=== PATIENT | female | born 1990 | race Caucasian/White ===

== ENCOUNTER 2017-04-14 01:01 | Emergency (ER) | payer BC ==
--- NOTE | ~2017-04-14 | CT71 ---
[facility] A Service of [facility] RADIOLOGY TEXT RESULTS PATIENT: ZOE LUONG LOCATION: [facility] : 88 UNIT #: [id number] AGE: [address]: Gary Fields SEX: F ORDER DR: [id number] [facility]. [place], [place] [address] [id number] MR#: [id number] Acc #: [id number] NAME: ZOE LUONG : 1990 SEX: F STUDY DATE/TIME: 04/14/2017 2:48 UNIT: ISI ROOM: STUDY DESCRIPTION: CT Head Wo Contrast Attending Physician: Gary Fields P.A.-C. Ordering Physician: Gary Cline M.D. Primary Care Physician: Primary Care Physician No MEDICAL IMAGING REPORT This report is preliminary unless electronic signature is present EXAM CT head, noncontrast, 04/14/2017 HISTORY 27-year-old female in the ED after a seizure today prior to arrival. No known prior history of seizures. Postictal lethargy and headache. TECHNIQUE CT examination of the head performed without IV contrast. Some of the images are degraded by patient motion artifact, and portions of the examination were repeated. This CT exam was performed with one or more of the following radiation dose reduction techniques: automatic control, adjustment of mA and/or kV according to patient size, and iterative reconstruction. FINDINGS The examination is negative. No evidence of intracranial hemorrhage, mass, mass effect, cerebral edema, hydrocephalus or additional abnormality. IMPRESSION Negative head CT examination. Dictated by... Gigi Coburn M.D. THIS IS AN ELECTRONICALLY VERIFIED REPORT Gigi Coburn M.D. at 04/14/2017 5:27 AM RGW/rnr TD: 04/14/2017 04:42 JOB #: [id number] MEDICAL IMAGING REPORT [facility] A Service [facility] RADIOLOGY TEXT RESULTS PATIENT: ZOE LUONG LOCATION: [facility] : 88 UNIT #: [id number] AGE: [address]: Gary Fields SEX: F ORDER DR: Page 1 of 1 COPY
--- NOTE | ~2017-04-14 | EKG ---
PATIENT: ZOE LUONG UNIT #: [id number] Ventricular Rate: 89 BPM Atrial Rate: 89 BPM P-R Interval: 164 ms QRS Duration: 104 ms Q-T Interval: 366 ms QTC Calculation(Bezet): 445 ms P [place]: 50 degrees Calculated R [place]: 38 degrees Calculated T [place]: 61 degrees Diagnosis Line: Normal sinus rhythm Diagnosis Line: Normal ECG Diagnosis Line: No previous ECGs available Diagnosis Line: Confirmed by RSOA CHERY MD ([id number]) on 04/16/2017 Diagnosis Line: 10:46:14 PM INTERPRETING MD: MIRI TORRES
[2017-04-14 02:48] LABS: BASOPHIL% 0.8 % (0-2.5); EOSINOPHIL% 0.1 % (0.0-7.0); HEMATOCRIT 35.8 % (35.0-45.0); HEMOGLOBIN 11.9 gm/dL (12.0-16.0); LYMPHOCYTE# 0.9 X10e3 (1.0-3.5); LYMPHOCYTE% 23.8 % (17.0-45.0); MEAN CELL VOLUME 79.6 FL (83-96); MEAN CORPUSCULAR HEMOGLOBIN 26.4 PG (28-34); MEAN CORPUSCULAR HGB CONC 33.1 g/dL (30-36); MEAN PLATELET VOLUME 8.5 FL (6.5-11.5); MONOCYTE# 0.2 X10e3 (0-1.0); MONOCYTE% 5.5 % (3.0-12.0); NEUTROPHIL# 2.8 X10e3 (1.5-7.1); NEUTROPHIL% 69.8 % (40-75); PLATELET COUNT 234 X10e3 (140-420); RED CELL DISTRIBUTION WIDTH 15.2 % (11.0-15.5)
[2017-04-14 03:01] LABS: DIFF IND NO
[2017-04-14 03:09] LABS: ALBUMIN SERUM 3.7 g/dL (3.5-5.0); ALKALINE PHOSPHATASE 76 U/L (32-92); ALT (SGPT) 80 U/L (10-40); AST (SGOT) 24 U/L (10-42); BILIRUBIN,TOTAL 0.3 mg/dL (0.2-2.0); BLOOD UREA NITROGEN 9 mg/dL (9-23); BUN/CREATININE RATIO 11.25; CALCIUM SERUM 8.7 mg/dL (8.4-10.2); CARBON DIOXIDE 24 mmol/L (22-31); CHLORIDE 107 mmol/L (100-111); CREATININE SERUM 0.8 mg/dL (0.6-1.4); GLOM FILT RATE Estimated 100.4 mL/min (>60); GLUCOSE FASTING 113 mg/dL (70-110); POTASSIUM 3.2 mmol/L (3.5-5.1); PROTEIN TOTAL SERUM 6.8 g/dL (6.0-8.3); SODIUM 138 mmol/L (135-145)
[2017-04-14 03:11] LABS: ALCOHOL BLOOD <5 mg/dL (0); BILIRUBIN, DIRECT <0.1 mg/dL (0.0-0.2); BILIRUBIN,INDIRECT 0.2 mg/dL (0.0-0.9)
[2017-04-14 04:42] LABS: URINE SOURCE CLEAN CATCH
[2017-04-14 04:47] LABS: URINE APPEARANCE CLEAR; URINE BILIRUBIN NEG (NEG); URINE BLOOD NEG (NEG); URINE COLOR YELLOW; URINE GLUCOSE NEG (NEG); URINE KETONE TRACE (NEG); URINE LEUKOCYTE ESTERASE NEG (NEG); URINE NITRATE NEG (NEG); URINE PROTEIN NEG (NEG); URINE SPECIFIC GRAVITY 1.025 (1.003-1.035); URINE UROBILINOGEN 0.2 MG/DL (NEG)
[2017-04-14 04:51] LABS: CULTURE INDICATED? NO
[2017-04-14 04:58] LABS: AMPHETAMINE POS (NEG); BARBITURATES NEG (NEG); BENZODIAZEPINES NEG (NEG); COCAINE NEG (NEG); MARIJUANA NEG (NEG); OPIATES NEG (NEG); TRICYCLIC ANTIDEPRESSANTS NEG (NEG); U METHADONE NEG (NEG)
== END 2017-04-14 06:35 | disposition home or self-care (01) ==
LOC: CED 01:01
PROVIDERS: Emergency Medicine
DX: G40.89 Other seizures (principal)
CPT/HCPCS: 36415; 70450; 80048; 80076; 80307; 81003; 82947; 84703; 85025; 93005; 96365; 96375; 99285; G0480; J1953; J2060